=== PATIENT | male | born 1950 | race Caucasian/White ===

== ENCOUNTER 2016-05-19 10:59 | Day surgery (SDC) | payer BC ==
--- NOTE | ~2016-05-19 | EGD ---
EGD REPORT [facility] [address] [id number] NAME: GHULAM AHUMADA : [birth year] STATUS : REG [facility] PAT#: [id number] AGE: 65 ADM/REG DATE : 05/19/16 MR#: [id number] REPORT SERV DATE: 05/19/16 DICTATED BY: ANNIE MCCARTHY DATE: 05/19/16 REPORT STATUS : Draft [facility]: [facility] DATE: 05/19/16 Endoscopy Center Patient Name: Ghulam Ahumada Date of : 1950 Attending MD: ANNIE MCCARTHY MD Procedure Date No Time: 05/19/2016 Procedure: Colonoscopy Indications: High risk colon cancer surveillance: Personal history of colon cancer, Last colon 10/2014 Referring MD: NETTIE HOLCOMB III, MD Medicines: See the Anesthesia note for documentation of the administered medications Complications: No immediate complications. Procedure: Pre-Anesthesia Assessment: - ASA Grade Assessment: III - A patient with severe systemic disease. After I obtained informed consent, the scope was passed under direct vision. Throughout the procedure, the patient's blood pressure, pulse, and oxygen saturations were monitored continuously. The PCF [id number] was introduced through the anus and advanced to the cecum, identified by appendiceal orifice and ileocecal valve. The colonoscopy was performed without difficulty. The patient tolerated the procedure well. The quality of the bowel preparation was adequate. Findings: The perianal and digital rectal examinations were normal. Internal hemorrhoids were found during retroflexion and were small. Diverticula were found in the entire colon. Normal distal colocolo anastomosis Impression: - Internal hemorrhoids. - Diverticulosis in the entire examined colon. - Normal distal colocolo anastomosis Recommendation: - Patient has a contact number available for emergencies. The signs and symptoms of potential delayed complications were discussed with the patient. Return to normal activities tomorrow. Written discharge instructions were provided to the patient. - Regular diet. - Continue present medications. - Repeat colonoscopy in 3 years for surveillance. - Return to my office in 1 year. EGD REPORT [address] [address] NAME: GHULAM AHUMADA : [birth year] STATUS : REG [facility]#: [id number] AGE: 65 ADM/REG DATE : 05/19/16 MR#: [id number] REPORT SERV DATE: 05/19/16 DICTATED BY: ANNIE MCCARTHY DATE: 05/19/16 REPORT STATUS : Draft TRANSCRIBED BY: [employer] DATE: 05/19/16 Procedure Code(s): --- Professional --- 11211, Colonoscopy, flexible, proximal to splenic flexure; diagnostic, with or without collection of specimen(s) by brushing or washing, with or without colon decompression (separate procedure) Diagnosis Code(s): --- Professional --- K64.8, Other hemorrhoids K57.30, Diverticulosis of large intestine without perforation or abscess without bleeding Z85.038, Personal history of other malignant neoplasm of large intestine CPT copyright 2013 [employer]. All rights reserved. The codes documented in this report are preliminary and upon replenishment specialist review may be revised to meet current compliance requirements. Annie Mccarthy MD ANNIE MCCARTHY MD 05/19/2016 1:04 PM This report has been signed electronically. Number of Addenda: 0 Note Initiated On: 05/19/2016 12:40 PM Scope Withdrawal Time 0 hours 6 minutes 18 seconds [address] [id number]
[~2016-05-19 10:59] MED LIST: ALTA5 PO; ASAB PO; C5 PO; EFFIENT10 PO; HALF81 PO; LIPITOR80 MG PO; LOP50 PO; LOZOLTAB PO; NITROQUICK0.4 MG SL; NITROSTAT0.4 MG SL; NORV10 PO; PEP20 PO; PERCOCET1 TA2 PO; PLAVIX PO; PROTONIX PO; SALONPAS-HOT EX; SLOW FE160 MG PO; TOPXL100 PO; VITAMIN B12 OTC PO; ZOCOR40 PO
[2016-11-25] MEDS ORDERED: ALTA5 (04:53)
[2016-11-25] MEDS ORDERED: NORV10 PO ×2 (04:53→12:54)
[2016-11-25] MEDS ORDERED: TOPXL100 PO ×2 (04:54→12:55)
[2016-11-25] MEDS ORDERED: LIPITOR80 MG PO ×2 (04:54→12:54)
[2016-11-25] MEDS ORDERED: COUMADIN3 MG PO (04:56)
[2016-11-25] MEDS ORDERED: NITROSTAT0.4 MG SL (12:54)
[2016-11-25] MEDS ORDERED: ALTA5 PO (12:55)
[2016-11-25] MEDS ORDERED: C1 PO (12:56)
[2016-11-25] MEDS ORDERED: AKWA TEARS15 ML OPH (12:57)
[2016-11-25] MEDS ORDERED: HALF81 PO (12:57)
== END 2016-05-19 23:59 | disposition home or self-care (01) ==
LOC: DMU 10:59
PROVIDERS: Internal Medicine Gastroenterology
PROC: 0DJD8ZZ Inspection of Lower Intestinal Tract, Via Natural or Artificial Opening Endoscopic (ICD-10-PCS; principal; 2016-05-19 12:30)
DX: Z12.11 Encounter for screening for malignant neoplasm of colon (principal); K64.8 Other hemorrhoids; I10 Essential (primary) hypertension; K57.30 Diverticulosis of large intestine without perforation or abscess without bleeding; I25.2 Old myocardial infarction; K21.9 Gastro-esophageal reflux disease without esophagitis; D64.9 Anemia, unspecified; Z80.0 Family history of malignant neoplasm of digestive organs; Z85.038 Personal history of other malignant neoplasm of large intestine; Z88.2 Allergy status to sulfonamides; Z98.0 Intestinal bypass and anastomosis status

== ENCOUNTER 2016-08-22 14:54 | Emergency (ER) | payer BC ==
[2016-11-25] MEDS ORDERED: ALTA5 (04:53)
[2016-11-25] MEDS ORDERED: NORV10 PO ×2 (04:53→12:54)
[2016-11-25] MEDS ORDERED: TOPXL100 PO ×2 (04:54→12:55)
[2016-11-25] MEDS ORDERED: LIPITOR80 MG PO ×2 (04:54→12:54)
[2016-11-25] MEDS ORDERED: COUMADIN3 MG PO (04:56)
[2016-11-25] MEDS ORDERED: NITROSTAT0.4 MG SL (12:54)
[2016-11-25] MEDS ORDERED: ALTA5 PO (12:55)
[2016-11-25] MEDS ORDERED: C1 PO (12:56)
[2016-11-25] MEDS ORDERED: HALF81 PO (12:57)
[2016-11-25] MEDS ORDERED: AKWA TEARS15 ML OPH (12:57)
== END 2016-08-22 14:55 | disposition home or self-care (01) ==
LOC: ER 14:54
PROC: 0H9DXZZ Drainage of Right Lower Arm Skin, External Approach (ICD-10-PCS; principal; 2016-08-22)
DX: L02.413 Cutaneous abscess of right upper limb (principal); Z88.2 Allergy status to sulfonamides; Z79.82 Long term (current) use of aspirin; Z79.01 Long term (current) use of anticoagulants; Z79.899 Other long term (current) drug therapy
CPT/HCPCS: 99282